=== PATIENT | female | born 1960 | race Caucasian/White ===

== ENCOUNTER → 2016-08-30 | Outpatient (CLI) | payer BC ==
--- NOTE | 2016-08-31 09:11 | MR ---
EXAMINATION TYPE: MR lumbar spine wo con DATE OF EXAM: 08/30/2016 2:32 PM COMPARISON: October 11, 2014 HISTORY: Low Back pain x2 years Multiplanar, MultiSpin echo imaging of the lumbar spine was performed. L1-L2: Mild to moderate disc desiccation with mild posterior disc bulge. No herniation or protrusion. No canal stenosis is present. Foramina are patent bilaterally. L2-L3: Grade 1 retrolisthesis of L2 on L3 is stable. Moderate disc desiccation with circumferential d isc bulge greatest posteriorly. Mild effacement of the ventral thecal sac. No evidence for herniation or central stenosis. Facet joint arthropathy left greater than right with mild narrowing. L3-L4: Right 1 retrolisthesis L3 on L4 is stable. Moderate disc desiccation with circumferential disc bulge greatest posteriorly. Borderline central stenosis identified. No leni herniation. Facet joint arthropathy with mild bilate ral foraminal encroachment. L4-L5: Moderate disc desiccation with circumferential disc bulge greatest posteriorly. Mild effaceme nt of the ventral thecal sac. No evidence for herniation or central stenosis. Facet joint arthropathy left greater than right with mild narrowing. L5-S1: Normal disc appearance without desiccation. No herniation, protrusion or disc bulging. No ca nal stenosis is present. Foramina are patent bilaterally. Lumbar segments are intact. No paraspinal masses are identified. Conus medullaris has a normal appe arance. IMPRESSION: 1. Multilevel degenerative disc disease and facet joint arthropathy unchanged. 2. Grade 1 retrolisthesis of L2 on L3 and L3 and L4 remain stable. 3. Borderline central stenosis at L3-4.
== END | disposition home or self-care (01) ==
LOC: RADMRIMAIN 13:40
PROVIDERS: ATTEND Internal Medicine
DX: M48.06 Spinal stenosis, lumbar region (principal); M43.16 Spondylolisthesis, lumbar region; M51.36 Other intervertebral disc degeneration, lumbar region; M46.06 Spinal enthesopathy, lumbar region
CPT/HCPCS: 72148

== ENCOUNTER → 2023-08-17 | Outpatient (CLI) | payer MEDICARE ==
--- NOTE | 2023-08-17 09:59 | CTL ---
EXAMINATION TYPE: CT Low Dose Lung DATE OF EXAM: 08/17/2023 8:36 AM CLINICAL INDICATION:Female, 63 years old with history of Z12.2 LUNG CA SCREEN F17.210 CURRENT SMOKER; CURRENT SMOKER. 1PPD X48 YEARS. , history of tobacco use. COMPARISON: None. TECHNIQUE: Multiple axial non-contrast scans were obtained from approximately the lung apices through the upper abdomen. Coronal and sagittal reformatted images were obtained. Low dose technique was uti lized. CT DLP: 37.90 mGycm, Automated exposure control for dose reduction was used. CT Contrast: Contrast used: None Oral contrast used: None FINDINGS: ======== Lack of intravenous contrast and low dose technique limits the evaluation of the vascular and soft ti ssue structures. LUNGS: No evidence of pulmonary fibrosis. No evidence of focal consolidation, pneumothorax or pleural effusion. Centrilobular emphysema changes. Nodules: RUL: None. RML: None. RLL: None. STEPHEN: None. LLL: None. AIRWAY: Patent and unremarkable. HEART: Size within normal limits. Mild atherosclerotic calcifications of the coronary arteries. MEDIASTINUM: No gross evidence of adenopathy. VASCULATURE: No aortic aneurysm. MUSCULOSKELETAL: No acute osseous abnormalities fixation screws in the right shoulder SOFT TISSUES/LYMPH NODES: Unremarkable. LOWER NECK: No significant findings. UPPER ABDOMEN: No significant findings. IMPRESSION: 1. No clinically significant pulmonary nodules. 2. Mild emphysema. CT LUNG RAD AND CT CHEST RECOMMENDATION: Lung-Rad 1 Negative: Continue annual screening with LDCT in 12 months. S Modifier (other clinically significant findings): None Recommend smoking cessation (if current smoker), or continuation of smoking cessation (if prior smoke r). Annual screening for lung cancer with low-dose computed tomography is recommended in adults ages 55 to 77 years who have a 30 pack-year smoking history and currently smoke or have quit within the pa st 15 years. Screening should be discontinued once a person has not smoked for 15 years or develops a health problem that substantially limits life expectancy or the ability or willingness to have curat jj lung surgery. Lung rads 2021 [email or web address]
== END | disposition home or self-care (01) ==
LOC: RADCTMAIN 08:03
PROVIDERS: ATTEND Internal Medicine
DX: Z12.2 Encounter for screening for malignant neoplasm of respiratory organs (principal); J43.9 Emphysema, unspecified; F17.210 Nicotine dependence, cigarettes, uncomplicated
CPT/HCPCS: 71271